=== PATIENT | female | born 1940 | race Caucasian/White ===

== ENCOUNTER 2016-11-12 19:28 | Inpatient (IN) | payer MEDICARE, BC ==
[~2016-11-12] VITALS: Ht 157.5 cm; Wt 81.0 kg
--- NOTE | ~2016-11-12 | US84 ---
[id number] [facility] [address] [place], [place] [address] [id number] MR#: [id number] Acc #: [id number] NAME: KACEY CAMARA : 1940 SEX: F STUDY DATE/TIME: 11/13/2016 19:50 UNIT: C3A PCU ROOM: 310 STUDY DESCRIPTION: US LE Veins Complete Aj Stdy Attending Physician: Valerie Rodriguez M.D. Ordering Physician: Martell Flanagan M.D. Primary Care Physician: Jenny Urias M.D. MEDICAL IMAGING REPORT This report is preliminary unless electronic signature is present EXAM Bilateral lower extremity venous ultrasound HISTORY Bilateral lower extremity swelling for 3 months. TECHNIQUE Venous ultrasound examination of both lower extremities was performed using grayscale, spectral Doppler and color flow Doppler imaging. FINDINGS The examination is negative. There is no evidence of deep venous thrombus from the groin to the lower calf bilaterally. Visualized greater saphenous veins are also patent. IMPRESSION Negative examination. No evidence of lower extremity deep venous thrombosis. Dictated by... Bc Mcghee M.D. THIS IS AN ELECTRONICALLY VERIFIED REPORT Bc Mcghee M.D. at 11/14/2016 11:03 PM DEEPA/mikael TD: 11/14/2016 06:15 JOB #: [id number] MEDICAL IMAGING REPORT Page 1 of 1 COPY
--- NOTE | ~2016-11-12 | CO ---
Unit #: [id number] #: [id number] Patient: KACEY CAMARA [id number] [facility]. [place], [place] [address] [id number] Abbie MR#: [id number] NAME: KACEY CAMARA ROOM: 310 Age: 76 Sex: F Admission Date: 11/12/2016 : 1940 Attending Physician: Valerie Rodriguez M.D. Primary Care Physician: Jenny Urias M.D. Consultation Date: 11/13/2016 CONSULTATION REPORT REASON FOR CONSULTATION Hydronephrosis. HISTORY OF PRESENT ILLNESS This 76-year-old woman who was admitted for mental status changes. As there is no one at bedside, unable to determine extent or duration of this. She has documented history of Alzheimer disease and reportedly slurred speech. There are no family members in the room and on interviewing her she is oriented to self, but not to time or place. She has reportedly had malodorous urine. She is noted to have elevated renal indices. She has been started on IV fluids and containing bicarbonate and Rocephin and a urine culture and urinalysis being abnormal, culture has been sent. She has bilateral hydronephrosis on CT scan. Her history is most pertinent for a cystectomy and ileal conduit urinary diversion by my former partner, Dr. Cedeño, in 1996 for high-grade muscle invasive bladder cancer. I had seen her here at [facility] in consultation for a similar presentation with urinary tract infection and hydronephrosis in 04/2013. At that time, her bilateral hydronephrosis was compared with previous studies, a loopogram demonstrated clear reflux into the right system and no filling defect or obstruction. On the left side, there was narrowing of the left ureter without clear reflux or clear obstruction or filling defect. Her left-sided hydronephrosis was not further evaluated, but of note, it is relatively stable with no appreciable change in the left renal cortex since that interval. Current x-ray report is pending, although I have reviewed the films personally. PAST MEDICAL HISTORY Dysrhythmia, COPD, Alzheimer's, chronic kidney disease, obesity, bladder cancer, irritable bowel syndrome, hyperlipidemia, depression. PAST SURGICAL HISTORY Herniorrhaphy, cataracts, bilateral knees, right shoulder, cystectomy. MEDICATIONS Admission medications include Namenda, hydrocodone 10, Lamictal, Zoloft, Cardizem, Centrum Silver, Megace, Lasix, Imodium, Bentyl, Remeron, and potassium. ALLERGIES None known. FAMILY HISTORY Not currently obtainable. Unit #: [id number] #: [id number] Patient: KACEY CAMARA SOCIAL HISTORY Long-term smoker. No alcohol use. REVIEW OF SYSTEMS Not obtainable. PHYSICAL EXAMINATION GENERAL: The patient is alert, responsive, oriented to self, she is tremors. ABDOMEN: Guarding, but she denies tenderness to 4 quadrant palpation. VITAL SIGNS: Temperature 97.9 degrees, pulse 73, blood pressure 96/49, respirations 18, oxygen saturation 93%. Height 5 feet 2 inches, weight 172 pounds. SKIN: Warm and pink. EXTREMITIES: No edema. DIAGNOSTIC STUDIES LABORATORY RESULTS: BUN 46, creatinine 3.3 versus creatinine of 1.5 in 2015. WBC 15.1. Urinalysis; turbid, positive nitrites, 200 to 300 white cells, 3+ bacteria. IMAGING STUDIES: Head CT, negative. CT of abdomen and pelvis without contrast, chronic bilateral hydronephrosis noted. IMPRESSION 1. Urinary tract infection and sepsis. 2. Acute on chronic renal insufficiency, it is clearly with a prerenal component as well. 3. Known reflux on the right, no clear obstructive component on the left, but could evaluate further if the patient fails to improve. PLAN We will observe initially with IV fluids antibiotics and await culture results. Consider repeat loopogram. Possible left percutaneous nephrostomy if failure to improve, ideally with discussion with family prior to contemplating such intervention. Thank you for the consultation, Swetha Osborne M.D. We will follow with you. Dictated by... Jimenez Serna M.D. YIN/katlyn TD: 11/14/2016 00:52 JOB #: [id number] Swetha Osborne M.D. Unit #: [id number] #: [id number] Patient: KACEY CAMARA CONSULTATION REPORT Page 1 of 1 X Jimenez Serna MD CONSULTATION REPORT
--- NOTE | ~2016-11-12 | CO ---
Unit #: [id number] #: [id number] Patient: CARIN CAMARA [id number] [address] [place], [place] [address] [id number] I MR#: [id number] NAME: CARIN CAMARA ROOM: 310 Age: 76 Sex: F Admission Date: 11/12/2016 : 1940 Attending Physician: Valerie Rodriguez M.D. Primary Care Physician: Jenny Urias M.D. Consultation Date: 11/14/2016 CONSULTATION REPORT REASON FOR CONSULTATION Renal insufficiency. Thank you very much for asking me to see this patient again in consultation. HISTORY OF PRESENT ILLNESS Ms. Carin Camara is a 76-year-old female, who has a history of chronic kidney disease, stage 3 with creatinine ranging in the 1.3 to 1.5 range over the last few years, I last saw her in the office last year, who presented to the hospital here, apparently increased confusion, lives with her son and brought in. She does not remember falling or anything. She denies any nonsteroidal use. Although, she says she questionable intermittently having some diarrhea at home and of course having here. She is more alert today. She denies any chest pain or shortness of breath. She has had some nausea, but no vomiting. She denies any lower extremity swelling acutely, although she has some chronic swelling she states for a while. PAST MEDICAL HISTORY History of dementia, history of chronic kidney disease stage 3, history of bladder CA status post cystectomy and ileal conduit, history of hypertension, history of COPD, history of anemia, history of irritable bowel syndrome, history of gastroesophageal reflux disease, history of hyperlipidemia. FAMILY HISTORY Negative kidney disease. SOCIAL HISTORY She lives with her son. No smoking or alcohol. ALLERGIES No known drug allergies. MEDICATIONS At home according to the list include Lasix 20 mg b.i.d., Imodium p.r.n., Remeron, Bentyl, KCl, Namenda, hydrocodone, Zoloft, Cardizem CD 120 b.i.d., Megace, and multivitamin. REVIEW OF SYSTEMS As mentioned in the HPI, otherwise negative. PHYSICAL EXAMINATION Unit #: [id number] #: [id number] Patient: CARIN CAMARA GENERAL: She is alert, more oriented. VITAL SIGNS: T-max is 100.4, pulse 79 to 96, blood pressure 90 to 146 over 40s to 80s, in 1860 and out 1200. HEENT: She is normocephalic and atraumatic. Pupils are equal, round, and reactive to light. Extraocular muscles are intact. Hearing appears to be normal. Mouth is clear. No erythema. No exudate. NECK: Supple. No adenopathy. CARDIAC: She has regular rate without a rub. No S3 or S4. LUNGS: Clear bilaterally. No wheezes, rhonchi, or rales. ABDOMEN: Bowel sounds positive. Nontender. Soft. No masses felt. No hepato-organomegaly noted. She does have ileal conduit bag noted. EXTREMITIES: Her legs are large and probably some mild lower extremity swelling. NEURO: Appears she is able to move all extremities. Alert and oriented currently. : Deferred. DIAGNOSTIC STUDIES LABORATORY RESULTS: Shows sodium of 140, potassium 3.7, chloride is 112, bicarb is 18, BUN of 31 down from 46, creatinine 2.2 down from 3.3 upon admission, glucose 124, calcium is 8.6, phosphorus 2.9, magnesium is 2.1. CPK is 790. Hemoglobin is 11.5, white count 72588, platelets 245,000. TSH 1.33. IMAGING STUDIES: CT of her head was negative. Chest x-ray, questionable vascular congestion. CT of the abdomen and pelvis showed new bilateral hydronephrosis. Doppler of her lower extremities were negative for DVT. ASSESSMENT AND PLAN 1. Acute on chronic kidney disease, stage 3. The patient with increased BUN and creatinine, although improving with holding her diuretics and IV fluids. Certainly on this combination, possibly volume depletion from diarrhea as well as from non-diuretic and also possible some contributing component to bilateral hydro. is following the patient, now. I agree with some mild hydration and watch for failure. Continue to avoid nonsteroidals, also avoid contrast dye. If we are trying to stay off long-term proton pump inhibitors if possible as well. We will check labs in the morning. We will continue to follow. 2. Acidosis. The patient has a non-anion gap metabolic acidosis, most likely from combination of renal failure as well as from bicarb loss from the ileal conduit. I agree with oral bicarbonate. 3. Again, bladder cancer, status post cystectomy with ileal conduit obstruction per . 4. Decreased mental status with a history of dementia. Mental status seems to be improved. Dictated by.Sandra Livingston/katlyn TD: 11/14/2016 23:59 JOB #: [id number] Unit #: [id number] #: [id number] Patient: ACRIN CAMARA CONSULTATION REPORT Page 1 of 1 X Marilee Banks MD X CONSULTATION REPORT
--- NOTE | ~2016-11-12 | EKG ---
PATIENT: KACEY CAMARA UNIT #: [id number] Ventricular Rate: 82 BPM Atrial Rate: 82 BPM P-R Interval: 170 ms QRS Duration: 64 ms Q-T Interval: 368 ms QTC Calculation(Bezet): 429 ms P [place]: 48 degrees Calculated R [place]: 24 degrees Calculated T [place]: 25 degrees Diagnosis Line: Normal sinus rhythm Diagnosis Line: Normal ECG Diagnosis Line: When compared with ECG of 24-FEB-2014 11:59, Diagnosis Line: Minimal criteria for Anterior infarct are no Diagnosis Line: longer Present Diagnosis Line: Confirmed by LOR RALPH MD ([id number]) on Diagnosis Line: 11/13/2016 8:31:59 AM INTERPRETING MD: LOREE ANGELES
--- NOTE | ~2016-11-12 | HP ---
Unit #: [id number] #: [id number] Patient: KACEY CAMARA [id number] [address] [place], [place] [address] [id number] I MR#: [id number] NAME: KACEY CAMARA ROOM: 50415 Age: 76 Sex: F Admission Date: 11/12/2016 : 1940 Attending Physician: Swetha Osborne M.D. Primary Care Physician: Jenny Urias M.D. HISTORY AND PHYSICAL CHIEF COMPLAINT Increased confusion, vsilq-cn-byduvhv kidney disease. HISTORY This pleasant 76-year-old female with dementia, chronic kidney disease, bladder cancer status post cystectomy and ileal conduit, hypertension, is admitted for confusion. The patient is confused. Her son told the ER physician that she was normal this morning. At 4:00 p.m. she awoke with decreased responsiveness, was confused, complaining of generalized pain. It was initially thought by EMS that the patient had slurred speech and weakness. However, in the ER her speech is fluent. Workup thus far shows vzcta-ak-qjhefyj kidney disease and a metabolic acidosis. Son is no longer present but plans to return to give further history. On examination the patient looks to be uncomfortable. She is complaining of generalized pain but more so in the abdomen. She has generalized abdominal tenderness which does not localize, without rebound or guarding. A urinalysis currently is pending. In the ER she was bolused with a liter of saline and is starting to produce urine. PAST MEDICAL HISTORY 1. Dementia. 2. COPD. 3. Obstructive sleep apnea. 4. Previous history of iron deficiency anemia. 5. Irritable bowel syndrome. 6. Lumbar radiculopathy, on [place]. 7. GERD. 8. Hyperlipidemia. 9. History of a tachycardia with negative Cardiolite stress test performed 04/2012. 10. Last echo 01/2009 mild MR, normal LV function. 11. Depression. 12. Laparoscopic repair of abdominal hernia. 13. Cataract extraction. 14. Bilateral knee surgeries. 15. Colonoscopy 10/07 which was negative except for diverticular disease. 16. Right shoulder surgery 03/2013. ALLERGIES No known drug allergies. Unit #: [id number] #: [id number] Patient: KACEY CAMARA HOME MEDICATIONS 1. Lasix 20 mg b.i.d. 2. Imodium 1 mg daily p.r.n. 3. Bentyl 10 mg b.i.d. p.r.n. 4. Remeron 30 mg q.h.s. 5. Potassium 30 mEq daily. 6. Namenda 10 mg b.i.d. 7. Hydrocodone 10/325 q.i.d. p.r.n. 8. Lamictal 25 mg b.i.d. 9. Zoloft 100 mg b.i.d. 10. Cardizem CD 120 mg b.i.d. 11. Multivitamin daily. 12. Megace 40 mg q.a.m. 13. ProAir p.r.n. FAMILY HISTORY Noncontributory given the patient's age. SOCIAL HISTORY The patient lives with her son who assists in her care. She denies tobacco use at present, dos not drink alcohol. REVIEW OF SYSTEMS Impossible to obtain due to the patient's confusion. PHYSICAL EXAMINATION GENERAL: Pleasantly confused, 76-year-old, moderately obese female who looks to be uncomfortable. VITAL SIGNS: Temperature 98.3. Pulse 80. Respirations 16. Blood pressure 118/70. O2 saturation is 97% on room air. HEENT: Eyes PERRLA, extraocular muscles are intact. Pharynx edentulous. NECK: Supple, without adenopathy or thyromegaly. CHEST: Clear. CARDIAC: Normal S1 and S2, without murmur. ABDOMEN: Bowel sounds are present. There is an ileostomy right abdomen which is now producing urine. The patient has generalized abdominal tenderness on exam which does not localize. No rebound or guarding. EXTREMITIES: Without edema. Pedal pulses are diminished. No ulcers on the feet. NEUROLOGIC EXAM: Patient is awake, alert. She is oriented to person only. Her cranial nerves are intact. She seems a bit stiff throughout but has equal strength throughout. Generally weak on exam. DIAGNOSTIC STUDIES LABORATORY: Admission labs: Hematocrit is 36.8, white blood count is 15.1, normal platelet count, six bands are noted. SMA-12 with glucose 124, BUN 45, creatinine 3.3, up from a BUN of 12, creatinine of 1.5 two years ago. Sodium 134, chloride 112, CO2 is 14. Anion gap is only 8. CPK is 790. Ammonia level normal. Lactic acid level normal. Coags normal. Cardiac markers are negative. Urinalysis is pending. IMAGING: Head CT no acute disease. Chest x-ray low lung volumes, mild bilateral atelectasis, mild central vascular congestion. CARDIOVASCULAR: EKG normal sinus rhythm, rate 82, normal appearing. Unit #: [id number] #: [id number] Patient: KACEY CAMARA ASSESSMENT 1. Dementia with increasing confusion, likely related to toxic-metabolic encephalopathy. 2. Loedk-ho-fqeohjy kidney disease. 3. Non-anion gap metabolic acidosis. 4. Complaints of generalized pain but patient mainly complains of abdominal pain on exam. 5. Chronic obstructive pulmonary disease and obstructive sleep apnea. 6. Irritable bowel syndrome. 7. Gastroesophageal reflux disease. 8. Hyperlipidemia. 9. Depression. 10. Bladder cancer, status post cystectomy and ileal conduit. PLANS 1. IV fluids with bicarb, hold Lasix. 2. Obtain ABG. 3. Await urinalysis, obtain blood cultures and will obtain a CT scan of the abdomen. 4. Bilateral venous Dopplers of the legs. 5. Likely antibiotics pending on above. 6. SCDs for DVT prophylaxis. 7. Decrease pain medicines for now while confused. 8. Further history when son arrives. Dictated by Swetha Osborne M.D. AML/cf TD: 11/12/2016 22:34 JOB #: [id number] HISTORY AND PHYSICAL Page 1 of 1 X Swetha Osborne MD X HISTORY AND PHYSICAL
--- NOTE | ~2016-11-12 | CT71 ---
[facility] A Service [facility] RADIOLOGY TEXT RESULTS PATIENT: KACEY CAMARA LOCATION: [facility] 310 : 38 UNIT #: [id number] AGE: [address]: Valerie Rodriguez MD SEX: F ORDER DR: [id number] [place], [place] [address] [id number] I MR#: [id number] Acc #: [id number] NAME: KACEY CAMARA : 1940 SEX: F STUDY DATE/TIME: 11/12/2016 19:58 UNIT: [facility] PCU ROOM: 310 STUDY DESCRIPTION: CT Head Wo Contrast Attending Physician: Valerie Rodriguez M.D. Ordering Physician: Martell Flanagan M.D. Primary Care Physician: Jenny Urias M.D. MEDICAL IMAGING REPORT This report is preliminary unless electronic signature is present EXAM CT brain without contrast HISTORY Confusion today. Slurred speech. FINDINGS This CT examination was performed with one or more of the following radiation dose reduction techniques: automatic exposure control, adjustment of mA and/or kV according to patient size, and iterative reconstruction. CT brain without contrast demonstrates mild chronic ischemic changes in the deep white matter bilaterally and mild generalized cerebral cortical atrophy. No intracranial hemorrhage, mass or edema. No midline shift, focal atrophy or extraaxial fluid collection. IMPRESSION No acute findings. Dictated by... Bc Mcghee M.D. THIS IS AN ELECTRONICALLY VERIFIED REPORT Bc Mcghee M.D. at 11/13/2016 11:33 PM DFL/mikael TD: 11/13/2016 07:57 JOB #: [id number] MEDICAL IMAGING REPORT [facility] A Service [facility] RADIOLOGY TEXT RESULTS PATIENT: KACEY CAMARA LOCATION: [facility] 310- : 38 UNIT #: [id number] AGE: [address]: Valerie Rodriguez MD SEX: F ORDER DR: Page 1 of 1 COPY
--- NOTE | ~2016-11-12 | DS ---
Unit #: [id number] #: [id number] Patient: KACEY CAMARA [id number] [address] [address] [id number] I MR#: [id number] NAME: KACEY CAMARA ROOM: 310 Age: 76 Sex: F Admission Date: 11/12/2016 : 1940 Discharge Date: 11/15/2016 Attending Physician: Valerie Rodriguez M.D. Primary Care Physician: Jenny Urias M.D. DISCHARGE SUMMARY PRINCIPAL DIAGNOSES 1. Toxic metabolic encephalopathy. 2. Acute kidney injury on chronic kidney disease stage 3 with baseline creatinine approximately 1.5, discharge creatinine 1.7. 3. Severe metabolic acidosis secondary to combination of acute kidney injury with underlying ileal conduit. 4. Bilateral hydronephrosis, right side of which is chronic. 5. Abdominal pain, likely secondary to irritable bowel syndrome. 6. Chronic obstructive pulmonary disease. 7. Mild to moderate dementia. 8. Normocytic anemia with discharge hemoglobin of 10.7. 9. Moderate protein malnutrition. 10. Physical deconditioning. 11. Mild vitamin B12 deficiency with vitamin B12 level of 339. 12. Irritable bowel syndrome. 13. Lumbar radiculopathy, maintained on narcotics. 14. Gastroesophageal reflux disease. 15. Depression. 16. Osteoarthritis. 17. Hypokalemia. CONSULTANTS 1. Dr. Serna - Urology. 2. Dr. Banks - Nephrology. PROCEDURES 1. Bilateral lower extremity venous Doppler which is negative for DVT. 2. CT scan of the abdomen and pelvis without contrast on November 12, 2016, with previous vasectomy and urinary diversion. New hydroureteronephrosis noted. 3. Chest x-ray on November 12, 2016, with bibasilar atelectasis and mild central vascular congestion. 4. CT of the head without contrast on November 12, 2016 without any acute findings. 5. Chronic ischemic changes in deep white matter bilaterally and mild generalized cerebral cortical atrophy noted. CLINICAL HISTORY/HOSPITAL COURSE Ms. Camara is a very nice 76-year-old female who presents to the emergency department with increasing confusion. Please refer to H and P for further details. In the emergency department, the patient was found to have questionable urinary tract infection of her ileal conduit. Her creatinine was also significantly elevated at 3.3, up from a baseline of approximately 1.5. She also has significant metabolic acidosis. The Unit #: [id number] #: [id number] Patient: KACEY CAMARA patient was subsequently admitted. The patient was placed on empiric Rocephin due to questionable urinary tract infection. However, her urine culture has had a growth of both mixed Gram-positive and Gram-negative. Given her underlying ileal conduit, it is difficult to determine whether this is true infection. Repeat urinalysis is pending but patient has been on antibiotic therapy. Of note, she did have a white blood cell count of 15.1 upon presentation and the following morning it was normal. However, this level may have been elevated due to significant dehydration. At this point, I am going to hold her antibiotics and await followup urine culture. The patient has remained afebrile throughout hospitalization. In regards to patient's metabolic encephalopathy, this resolved with hydration and antibiotic therapy. She does have underlying dementia but appears to be her baseline after discussion with her son. CT scan of the head was unremarkable. Urology was consulted given findings of significant hydronephrosis on CT scan of the abdomen and pelvis. The patient has chronic right side hydronephrosis but the left appeared to be relatively new. At this point, it is asymptomatic and it will just simply be monitored by Dr. Serna on an outpatient basis. If hydronephrosis progresses or becomes symptomatic, there are plans for nephrostomy tube. The patient underwent CT scan of the abdomen due to complaints of abdominal pain. The CT scan was unremarkable. I think this is likely muscular plus or minus some constipation alternating with diarrhea consistent with irritable bowel. The patient has developed diarrhea during hospitalization and does have positive fecal leukocytes with the pending C. diff. I am going to hold antibiotics until C. diff is available. Will continue her on her medications for irritable bowel until then. The patient was also found to have a significant metabolic acidosis upon presentation without an anion gap. Her CO2 initially was 9. This is secondary to prior to some uremia in addition to her ileal conduit. 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 The patient, today, is awake, alert, eating and is deemed appropriate for rehab. She will discharge to rehab today and this has been discussed both with the patient and her son. DISCHARGE CONDITION Stable. DISCHARGE STATUS Discharge to rehab. DISCHARGE MEDICATIONS 1. Sodium bicarbonate 650 mg p.o. b.i.d. 2. Lamictal 25 mg b.i.d. 3. Remeron 30 mg at bedtime. 4. Zoloft 100 mg b.i.d. 5. Imodium 1 mg p.o. daily p.r.n. for diarrhea. 6. Bentyl 10 mg p.o. b.i.d. p.r.n. for stomach cramping. 7. Megace 40 mg p.o. daily. 8. Diltiazem CD 120 mg b.i.d. Unit #: [id number] #: [id number] Patient: KACEY CAMARA 9. Namenda 10 mg b.i.d. 10. Centrum Silver, one tablet daily. 11. [place] 10/325, one half to one tablet p.o. four times daily p.r.n. for pain. 12. Klor-Con 20 mEq p.o. daily. 13. Vitamin B12 1000 mcg p.o. daily. DISCHARGE INSTRUCTIONS The patient was instructed to follow a heart healthy diet. She can increase her activity as tolerated. FOLLOWUP Patient will follow up with Dr. Serna in approximately four weeks. The patient will follow up with Dr. Banks in four to six weeks. Patient will follow up with Dr. Urias upon discharge from rehab. Time spent on discharge today - 52 minutes. Dictated by... Valerie Rodriguez M.D. TIARA/byron TD: 11/15/2016 11:09 JOB #: [id number] DISCHARGE SUMMARY Page 1 of 1 X Valerie Rodriguez MD DISCHARGE SUMMARY
--- NOTE | ~2016-11-12 | HP ---
Unit #: [id number] #: [id number] Patient: KACEY CAMARA [id number] [address] [address] [id number] I MR#: [id number] NAME: KACEY CAMARA ROOM: 80646 Age: 76 Sex: F Admission Date: 11/12/2016 : 1940 Attending Physician: Swetha Osborne M.D. Primary Care Physician: Jenny Urias M.D. HISTORY AND PHYSICAL ADDENDUM Urinalysis was leukocyte esterase positive, nitrite and protein positive, with 5 to 10 red cells, 200 to 300 white cells and 4+ bacteria, with only occasional squamous cell. I therefore will start antibiotics and watch the patient carefully. Dictated by Swetha Osborne M.D. AML/cf TD: 11/12/2016 23:09 JOB #: [id number] HISTORY AND PHYSICAL Page 1 of 1 X Swetha Osborne MD HISTORY AND PHYSICAL
--- NOTE | ~2016-11-12 | CT4 ---
[facility] of [facility] RADIOLOGY TEXT RESULTS PATIENT: KACEY CAMARA LOCATION: [facility] 310- : 38 UNIT #: [id number] AGE: [address]: Valerie Rodriguez MD SEX: F ORDER DR: [id number] [facility] [address]. [place], [place] [address] [id number] I MR#: [id number] Acc #: [id number] NAME: KACEY CAMARA : 1940 SEX: F STUDY DATE/TIME: 11/12/2016 23:31 [facility] RO[facility]: 310 STUDY DESCRIPTION: CT Abd and Pelv Wo Cont Attending Physician: Valerie Rodriguez M.D. Ordering Physician: Martell Flanagan M.D. Primary Care Physician: Jenny Urias M.D. MEDICAL IMAGING REPORT This report is preliminary unless electronic signature is present EXAM CT abdomen and pelvis without contrast INDICATION Generalized abdominal pain today. PROCEDURE Unenhanced CT of the abdomen and pelvis. This CT examination was performed with one or more of the following radiation dose reduction techniques: automatic exposure control, adjustment of mA and/or kV according to patient size, and iterative reconstruction. COMPARISON 04/18/2015. FINDINGS ABDOMEN WITHOUT CONTRAST: There are a few small cysts in the liver, the largest is subcapsular left hepatic lobe that measures 2 cm previously 3.6 cm. The spleen, adrenal glands, pancreas show no acute abnormality. Previous cholecystectomy. Right mid abdominal ostomy. Bowel loops nondilated. The patient is status post cystectomy with urinary diversion. Moderately severe right and moderate left hydronephrosis is new compared with the previous study. No obstructing radiodense calculus. PELVIS WITHOUT CONTRAST: No pelvic mass. No aggressive appearing bone lesion. IMPRESSION 1. Previous cystectomy with urinary diversion. 2. New hydroureteronephrosis compared with 04/18/2015. Dictated by... [facility] RADIOLOGY TEXT RESULTS PATIENT: KACEY CAMARA LOCATION: [facility] 310-01 : 38 UNIT #: [id number] AGE: [address]: Valerie Rodriguez MD SEX: F ORDER DR: Linwood House M.D. THIS IS AN ELECTRONICALLY VERIFIED REPORT Linwood House M.D. at 11/13/2016 9:58 PM MISSY/mikael TD: 11/13/2016 09:17 JOB #: [id number] MEDICAL IMAGING REPORT Page 1 of 1 COPY
--- NOTE | ~2016-11-12 | CR72 ---
[facility] A Service of [facility] RADIOLOGY TEXT RESULTS PATIENT: KACEY CAMARA LOCATION: [facility] 310-01 : 38 UNIT #: [id number] AGE: [address]: Valerie Rodriguez MD SEX: F ORDER DR: [id number] [facility] [address] [facility] [place], [place] [address] [id number] I MR#: [id number] Acc #: [id number] NAME: KACEY CAMARA : 1940 SEX: F STUDY DATE/TIME: 11/12/2016 20:16 [facility] ROOM: 310 STUDY DESCRIPTION: CR Chest Single View Portable Attending Physician: Valerie Rodriguez M.D. Ordering Physician: Martell Flanagan M.D. Primary Care Physician: Jenny Urias M.D. MEDICAL IMAGING REPORT This report is preliminary unless electronic signature is present EXAM Portable chest, 11/12/2016 HISTORY 76-year-old female shortness of air beginning today. COMPARISON Chest, 04/18/2015 FINDINGS Frontal chest demonstrates low lung volumes with mild bibasilar atelectasis. Lungs appear otherwise clear. No pneumothorax. Heart size and mediastinum are within normal limits. Pulmonary vasculature demonstrates mild congestion. Right shoulder arthroplasty. IMPRESSION Low lung volumes with mild bibasilar atelectasis. Mild central vascular congestion. Dictated by... Tyrone Calloway M.D. THIS IS AN ELECTRONICALLY VERIFIED REPORT Tyrone Calloway M.D. at 11/13/2016 2:41 PM ALISE/gay TD: 11/13/2016 08:00 JOB #: [id number] MEDICAL IMAGING REPORT Page 1 of 1 COPY
[~2016-11-12 19:28] MED LIST: ABILIFY PO; ABILIFY5 MG PO; ALBUTEROL 0.5ML INH; ALBUTEROL INHALER INH; ALBUTEROL MININEB NEB; ALBUTEROL2.5 MG/0.5 IH; ALLEGRA PO; ALLEGRA60 M1 PO; AMITRYPTYLINE PO; ARICEPT PO; ARICEPT5 MG PO; B COMPLEX1 CA1 PO; BACTRIM DS TABL1 TA1 PO; BENTYL10 MG PO; CALCIUM + VITAM1 TAB PO; CALCIUM 500 + D1 TAB PO; CARDIZEM CD PO; CARDIZEM CD120 M1 PO; CARDIZEM CD120 MG PO; CARDIZEM60 M1 PO; CELEBREX PO; CIPRO PO; COMBIVENT MININEB; DESYREL100 MG PO; DICYCLOMINE HCL20 MG; DICYCLOMINE HCL20 MG PO; EFFEXOR PO; EFFEXOR-XR75 MG PO; EFFEXOR75 M2 PO; FAMOTIDINE20 MG PO; FLEXERIL PO; FLEXERIL10 M1 PO; GENAPAP325 MG PO; HUMIBID L.1 TAB.SR .; HYDROCODON-ACE1 EAC7 PO; IRON1 TA1 PO; IRON1 TAB PO; IRON325 ( 65 ) PO; IRON45 MG PO; JOINT JUICE; K-DUR20 ME2 PO; KCL PO; KEFLEX PO; KLOR-CON; LAMICTAL25 MG PO; LASIX PO; LASIX20 MG PO; LEVAQUIN; LEVAQUIN PO; LEXAPRO PO; LIBRAX CAPSULE1 CAP PO; LIPITOR PO; LIPITOR40 MG PO; LORTAB 5/500 TA1 TA1 PO; LOTRONEX1 MG PO; MACROBID100 M1; MACROBID100 MG PO; MOTRIN600 M1 PO; MUCINEX DM1 TAB.SR . PO; MULTI-DAY VITAM1 TAB PO; MULTI-VITAMIN1 TAB PO; MULTIPLE VITAMI1 T10 PO; MYSOLINE50 M1 PO; MYSOLINE50 M2 PO; MYSOLINE50 MG PO; NAMENDA10 MG PO; NATURAL VIT1000 UNIT PO; NEURONTIN100 MG; NEURONTIN100 MG PO; NEXIUM PO; NORCO 5/325 TAB1 TAB PO; PERCOCET5/325 PO; PHENERGAN25 M1 PO; POTASSIUM GLUCO99 MG PO; PREDNISONE; PREDNISONE PO; PRILOSEC20 M1 PO; PROAIR HFA8.5 GM; PROAIR HFA8.5 GM IH; PROAIR RESPICL90 MCG IH; PROPRANOLOL PO; PROTONIX PO; PROZAC; REMERON30 MG PO; RESTASIS32 EA OP; SEROQUEL PO; SINGULAIR; SINGULAIR PO; SLOW RELEASE IRON; STRATTERA PO; SUPER B COMPLEX1 CAP PO; TRAMADOL HCL50 M1 PO; TRAZODONE HCL100 MG PO; TUSSIONEX PENN473 ML PO; VICODIN 5/1 TAB 5/50 PO; VICODIN PO; VIT E PO; VITAL-D RX TABL1 TAB PO; VITAMIN B12-FO1 EACH PO; VITAMIN C1000 M2 PO; VITAMIN D 22000 UNIT; VITAMIN D1000 UNI1 PO; VITAMIN E; VITAMIN E1000 UNI1 PO; WELCHOL625 MG PO; ZANAFLEX4 M1 PO; ZANTAC150 M1 PO; ZITHROMAX PO; ZOFRAN PO; ZOLOFT100 MG PO; ZYRTEC10 M2 PO; [UNRECOGNIZED DRUG - OTHER]; [UNRECOGNIZED DRUG - SUPPLY]
[2016-11-12 20:07] LABS: BASOPHIL% 0.1 % (0-2.5); EOSINOPHIL# 0.1 X10e3 (0-0.7); HEMATOCRIT 36.8 % (35.0-45.0); HEMOGLOBIN 11.8 gm/dL (12.0-16.0); LYMPHOCYTE# 3.1 X10e3 (1.0-3.5); LYMPHOCYTE% 20.5 % (17.0-45.0); MEAN CORPUSCULAR HEMOGLOBIN 30.6 PG (28-34); MEAN CORPUSCULAR HGB CONC 32.2 g/dL (30-36); MEAN PLATELET VOLUME 8.1 FL (6.5-11.5); MONOCYTE% 6.8 % (3.0-12.0); NEUTROPHIL# 10.8 X10e3 (1.5-7.1); NEUTROPHIL% 71.6 % (40-75); PLATELET COUNT 307 X10e3 (140-420); RED BLOOD COUNT 3.87 X10e (3.90-5.30); RED CELL DISTRIBUTION WIDTH 14.8 % (11.0-15.5); WHITE BLOOD COUNT 15.1 X10e3 (4.0-10.5)
[2016-11-12 20:11] LABS: POC - CKMB 20.4 ng/mL (0.0-7.9); POC - TROPONIN <0.05 ng/mL (<=0.05)
[2016-11-12 20:11] LABS: DIFF IND YES
[2016-11-12 20:20] LABS: PROTHROMBIN TIME (PATIENT) 11.1 SECONDS (10.0-11.7)
[2016-11-12 20:26] LABS: PLATELET ESTIMATE NORMAL (NORMAL)
[2016-11-12 20:27] LABS: ANISOCYTOSIS SL
[2016-11-12 20:30] LABS: ALBUMIN SERUM 3.5 g/dL (3.5-5.0); BILIRUBIN, DIRECT 0.1 mg/dL (0.0-0.2); BILIRUBIN,TOTAL 0.1 mg/dL (0.2-2.0); BUN/CREATININE RATIO 13.93; CREATININE SERUM 3.3 mg/dL (0.6-1.4); GLOM FILT RATE Estimated 12.7 mL/min (>60); POTASSIUM 4.3 mmol/L (3.5-5.1); PROTEIN TOTAL SERUM 8.1 g/dL (6.0-8.3)
[2016-11-12 21:19] LABS: URINE SOURCE CLEAN CATCH
[2016-11-12 21:23] LABS: URINE APPEARANCE TURBID; URINE BILIRUBIN NEG (NEG); URINE BLOOD 2+ (NEG); URINE COLOR YELLOW; URINE GLUCOSE NEG (NEG); URINE KETONE NEG (NEG); URINE LEUKOCYTE ESTERASE 3+ (NEG); URINE NITRATE POS (NEG); URINE PH 7.5 (5-8); URINE PROTEIN 2+ (NEG); URINE SPECIFIC GRAVITY 1.016 (1.003-1.035); URINE UROBILINOGEN 0.2 MG/DL (NEG)
[2016-11-12 21:25] LABS: CULTURE INDICATED? YES; URINE BACTERIA AUWI 4+ (NEGATIVE); URINE SQUAMOUS EPITHELIAL CELL OCC /[HPF]; UWBCS1 AUWI 200-300 (0-5)
[2016-11-12] MEDS ORDERED: LASIX20 MG PO (21:32)
[2016-11-12] MEDS ORDERED: IMODIUM2 MG PO (21:33)
[2016-11-12] MEDS ORDERED: BENTYL10 MG PO (21:34)
[2016-11-12] MEDS ORDERED: REMERON30 MG PO (21:35)
[2016-11-12] MEDS ORDERED: NAMENDA10 MG PO (21:36)
[2016-11-12] MEDS ORDERED: KCL PO (21:36)
[2016-11-12] MEDS ORDERED: HYDROCODON-ACE1 EAC5 PO (21:37)
[2016-11-12] MEDS ORDERED: ZOLOFT100 MG PO (21:38)
[2016-11-12] MEDS ORDERED: CENTRUM SILVER PO (21:38)
[2016-11-12] MEDS ORDERED: CARDIZEM CD120 M1 PO (21:38)
[2016-11-12] MEDS ORDERED: LAMICTAL25 MG PO (21:38)
[2016-11-12] MEDS ORDERED: MEGACE PO (21:39)
[2016-11-12 22:42] LABS: ARTERIAL BLD GAS O2 SATURATION 96.2 % (90.0-100.0); ARTERIAL BLOOD GAS CARBOXY HB 0.5 %sat (0.0-9.0); ARTERIAL BLOOD GAS HCO3 12.1 mmol/L; ARTERIAL BLOOD GAS MET HB 0.8 %sat (0.0-2.0); ARTERIAL BLOOD GAS PCO2 26.8 mmHg (35.0-45.0); ARTERIAL BLOOD GAS PO2 90.9 mmHg (80.0-100); ARTERIAL BLOOD GAS pH 7.263 (7.350-7.450)
[2016-11-12 22:43] LABS: ARTERIAL BLOOD GAS ALLEN TEST NORMAL; ARTERIAL BLOOD GAS ART SITE LEFT BRACHIAL; ARTERIAL BLOOD GAS DELIVERY ROOM AIR; ARTERIAL DRAW? YES
[2016-11-13 04:32] LABS: ARTERIAL BLD GAS O2 SATURATION 97.9 % (90.0-100.0); ARTERIAL BLOOD GAS CARBOXY HB 0.2 %sat (0.0-9.0); ARTERIAL BLOOD GAS HCO3 14.9 mmol/L; ARTERIAL BLOOD GAS MET HB 0.4 %sat (0.0-2.0); ARTERIAL BLOOD GAS PCO2 32.6 mmHg (35.0-45.0); ARTERIAL BLOOD GAS pH 7.268 (7.350-7.450)
[2016-11-13 04:33] LABS: ARTERIAL BLOOD GAS ALLEN TEST NORMAL; ARTERIAL BLOOD GAS ART SITE RIGHT RADIAL; ARTERIAL DRAW? YES
[2016-11-13 04:34] LABS: ARTERIAL BLOOD GAS DELIVERY NASAL CANNULA
[2016-11-13 11:22] LABS: BASOPHIL# 0.1 X10e3 (0-0.3); BASOPHIL% 0.6 % (0-2.5); EOSINOPHIL# 0.4 X10e3 (0-0.7); EOSINOPHIL% 4.5 % (0.0-7.0); HEMOGLOBIN 10.7 gm/dL (12.0-16.0); LYMPHOCYTE# 1.9 X10e3 (1.0-3.5); LYMPHOCYTE% 19.6 % (17.0-45.0); MEAN CORPUSCULAR HEMOGLOBIN 30.9 PG (28-34); MEAN CORPUSCULAR HGB CONC 32.5 g/dL (30-36); MEAN PLATELET VOLUME 8.2 FL (6.5-11.5); MONOCYTE# 0.8 X10e3 (0-1.0); MONOCYTE% 7.6 % (3.0-12.0); NEUTROPHIL# 6.7 X10e3 (1.5-7.1); NEUTROPHIL% 67.7 % (40-75); PLATELET COUNT 239 X10e3 (140-420); RED BLOOD COUNT 3.47 X10e (3.90-5.30); RED CELL DISTRIBUTION WIDTH 14.5 % (11.0-15.5); WHITE BLOOD COUNT 9.9 X10e3 (4.0-10.5)
[2016-11-13 11:29] LABS: DIFF IND NO
[2016-11-13 11:45] LABS: ALBUMIN SERUM 2.7 g/dL (3.5-5.0); BILIRUBIN,TOTAL 0.8 mg/dL (0.2-2.0); BUN/CREATININE RATIO 14.64; CALCIUM SERUM 8.3 mg/dL (8.4-10.2); CREATININE SERUM 2.8 mg/dL (0.6-1.4); GLOM FILT RATE Estimated 15.5 mL/min (>60); POTASSIUM 3.8 mmol/L (3.5-5.1); PROTEIN TOTAL SERUM 6.4 g/dL (6.0-8.3)
[2016-11-13 12:04] LABS: %MB 1.6 % (0.0-4.0)
[2016-11-14 05:40] LABS: HEMATOCRIT 36.4 % (35.0-45.0); HEMOGLOBIN 11.5 gm/dL (12.0-16.0); MEAN CELL VOLUME 96.2 FL (83-96); MEAN CORPUSCULAR HEMOGLOBIN 30.4 PG (28-34); MEAN CORPUSCULAR HGB CONC 31.6 g/dL (30-36); MEAN PLATELET VOLUME 8.5 FL (6.5-11.5); RED BLOOD COUNT 3.78 X10e (3.90-5.30); RED CELL DISTRIBUTION WIDTH 14.6 % (11.0-15.5); WHITE BLOOD COUNT 11.3 X10e3 (4.0-10.5)
[2016-11-14 06:19] LABS: BUN/CREATININE RATIO 14.09; CALCIUM SERUM 8.6 mg/dL (8.4-10.2); CREATININE SERUM 2.2 mg/dL (0.6-1.4); GLOM FILT RATE Estimated 20.8 mL/min (>60); MAGNESIUM 2.1 mg/dL (1.6-3.0); PHOSPHOROUS 2.9 mg/dL (2.5-4.6); POTASSIUM 3.7 mmol/L (3.5-5.1)
[2016-11-15 05:57] LABS: HEMOGLOBIN 10.7 gm/dL (12.0-16.0); MEAN CELL VOLUME 94.8 FL (83-96); MEAN CORPUSCULAR HEMOGLOBIN 30.7 PG (28-34); MEAN CORPUSCULAR HGB CONC 32.4 g/dL (30-36); RED BLOOD COUNT 3.48 X10e (3.90-5.30); RED CELL DISTRIBUTION WIDTH 14.6 % (11.0-15.5); WHITE BLOOD COUNT 7.7 X10e3 (4.0-10.5)
[2016-11-15 07:09] LABS: BUN/CREATININE RATIO 11.76; CALCIUM SERUM 8.3 mg/dL (8.4-10.2); CREATININE SERUM 1.7 mg/dL (0.6-1.4); GLOM FILT RATE Estimated 28.4 mL/min (>60); POTASSIUM 3.4 mmol/L (3.5-5.1)
== END 2016-11-15 17:57 | DRG 682 ==
LOC: CED 19:28 → C3A PCU 22:00 → CEDOF 22:00 → CED 22:12 → C3A PCU 11-13 00:06 → CEDOF 11-13 00:06 → C3A PCU 11-13 07:03
PROVIDERS: Emergency Medicine; Internal Medicine
DX: N17.9 Acute kidney failure, unspecified (principal); G92 Toxic encephalopathy; E87.2 Acidosis; E44.0 Moderate protein-calorie malnutrition; E86.0 Dehydration; I12.9 Hypertensive chronic kidney disease with stage 1 through stage 4 chronic kidney disease, or unspecified chronic kidney disease; N18.3 Chronic kidney disease, stage 3 (moderate); N13.30 Unspecified hydronephrosis; K58.9 Irritable bowel syndrome, unspecified; J44.9 Chronic obstructive pulmonary disease, unspecified; F03.90 Unspecified dementia, unspecified severity, without behavioral disturbance, psychotic disturbance, mood disturbance, and anxiety; D64.9 Anemia, unspecified; E53.8 Deficiency of other specified B group vitamins; M54.16 Radiculopathy, lumbar region; K21.9 Gastro-esophageal reflux disease without esophagitis; F32.9 Major depressive disorder, single episode, unspecified; M19.90 Unspecified osteoarthritis, unspecified site; E87.6 Hypokalemia; Z85.51 Personal history of malignant neoplasm of bladder; G47.33 Obstructive sleep apnea (adult) (pediatric)
CPT/HCPCS: 36415; 36600; 70450; 71010; 74176; 80048; 80053; 80076; 81003; 82140; 82550; 82553; 82607; 82803; 82947; 83605; 83630; 83735; 84100; 84443; 84484; 85025; 85027; 85610; 85730; 87040; 87086; 87493; 93005; 93970; 94010; 94760; 97163; 97165; 97530; 99285; G8978-GP; G8979-GP; G8987-GO; G8988-GO; G8989-GO; J0696; J7060